=== PATIENT | female | born 1950 | race Caucasian/White ===

== ENCOUNTER → 2018-05-14 11:58 | Outpatient (CLI) | payer OTHER, MEDICARE, SELFPAY ==
--- NOTE | 2018-05-14 | DI.MG.S_ITS ---
BILATERAL DIGITAL SCREENING MAMMOGRAM 3D/2D WITH CAD: 05/14/2018 CLINICAL: Routine screening. Baseline by default. No prior exams were available for comparison. There are scattered fibroglandular elements in both breasts. Current study was also evaluated with a Computer Aided Detection (CAD) system. There is a 1.2 cm oval equal density focal asymmetry with an indistinct and circumscribed margin in the right breast at 11 o'clock middle depth. There are grouped fine punctate calcifications in the left breast at 1 o'clock posterior depth. No other significant masses or calcifications are seen in either breast. IMPRESSION: INCOMPLETE: NEEDS ADDITIONAL IMAGING EVALUATION The 1.2 cm oval equal density focal asymmetry in the right breast at 11 o'clock middle depth is indeterminate. Mediolateral and spot compression views as well as additional views with possible ultrasound are recommended. The grouped fine punctate calcifications in the left breast at 1 o'clock posterior depth are indeterminate. Mediolateral, spot magnification, and additional views are recommended. This exam was interpreted at Station ID: [id number]. NOTE: For mammograms, a report in lay terms will be sent to the patient. Approximately 15% of breast malignancies will not be visualized mammographically. In the management of a palpable breast mass, a negative mammogram must not discourage biopsy of a clinically suspicious lesion. Electronically Signed By: Vinnie dang/mani:05/14/2018 16:58:02 letter sent: Additional Imaging Needed ACR BI-RADS Category 0: Incomplete [id number]
== END ==
PROVIDERS: Visit Provider Family Medicine
DX: Z12.31 Encounter for screening mammogram for malignant neoplasm of breast (principal)
CPT/HCPCS: 77063; 77067

== ENCOUNTER → 2018-06-03 09:27 | Outpatient (CLI) | payer OTHER, MEDICARE, SELFPAY ==
--- NOTE | 2018-06-03 | DI.MG.S_ITS ---
BILATERAL DIGITAL DIAGNOSTIC MAMMOGRAM 3D/2D: 06/03/2018 CLINICAL: Additional evaluation requested from prior study. Comparison is made to exam dated: 05/14/2018 [facility]. There are scattered fibroglandular elements in both breasts. There is a 1.1 cm oval equal density mass with a circumscribed margin in the right breast at 10 o'clock middle depth. There is a cluster of clustered fine pleomorphic punctate calcifications in the left breast at 1 o'clock middle depth. No other significant masses or calcifications are seen in either breast. IMPRESSION: INCOMPLETE: NEEDS ADDITIONAL IMAGING EVALUATION The 1.1 cm oval equal density mass in the right breast at 10 o'clock middle depth is indeterminate. An ultrasound is recommended. The cluster of clustered fine pleomorphic punctate calcifications in the left breast at 1 o'clock middle depth are at an intermediate suspicion for malignancy. A stereotactic biopsy is recommended. This exam was interpreted at Station ID: [id number]. NOTE: For mammograms, a report in lay terms will be sent to the patient. Approximately 15% of breast malignancies will not be visualized mammographically. In the management of a palpable breast mass, a negative mammogram must not discourage biopsy of a clinically suspicious lesion. Electronically Signed By: Vinnie dang/mani:06/03/2018 10:41:28 letter sent: Need Ultrasound ACR BI-RADS Category 0: Incomplete [id number]
--- NOTE | 2018-06-03 | DI.US.S_ITS ---
ULTRASOUND OF RIGHT BREAST AND RIGHT AXILLA: 06/03/2018 CLINICAL: Patient returns today to evaluate a density in the right breast. Comparison is made to exams dated: 06/03/2018 mammogram and 05/14/2018 mammogram - [facility]. Color flow and real-time ultrasound of the right breast and axilla were performed on the areas of interest. There is a 1.2 cm x 0.9 cm x 0.5 cm oval mass with a lobulated and circumscribed margin in the right breast at 10 o'clock posterior depth. This oval mass is hypoechoic and septated. This correlates with mammography findings. Color flow imaging demonstrates that there is no vascularity present. No abnormalities were seen sonographically in the right axilla. IMPRESSION: SUSPICIOUS OF MALIGNANCY - FOLLOW-UP RECOMMENDED The 1.2 cm x 0.9 cm x 0.5 cm oval mass in the right breast is at a low suspicion for malignancy. An ultrasound guided biopsy is recommended. Stereotactic guided biopsy is also recommended of left breast calcifications. The findings were discussed with the patient at the conclusion of the study by Dr. Kwong. This exam was interpreted at Station ID: [id number]. Electronically Signed By: Vinnie Simpson M.D. [email or web address]/:06/03/2018 11:01:24 letter sent: Biopsy Required Ultrasound BI-RADS: 4a Suspicious abnormality - low suspicion for malignancy
== END ==
PROVIDERS: Visit Provider Family Medicine
DX: R92.8 Other abnormal and inconclusive findings on diagnostic imaging of breast (principal)
CPT/HCPCS: 76642; 77066; G0279